=== PATIENT | male | born 1965 | race Caucasian/White ===

== ENCOUNTER 2020-10-10 22:37 | Emergency (ER) | payer OTHER ==
[2020-10-10] MEDS ORDERED: Adenosine 6 MG/2 ML SDV IVPUSH ONE (22:51)
[2020-10-10] MEDS: Adenosine 12 MG/4 ML SDV ONE (23:09)
[2020-10-10] MEDS: Adenosine 6 MG/2 ML SDV IVPUSH ONE (23:10)
[2020-10-10] MEDS: Aspirin 81 MG Tab.Chew PO ONE ×2 (23:10→23:22)
--- NOTE | 2020-10-10 23:16 | EDM.PDOC ---
ED HPI GENERAL MEDICAL PROBLEM - General Chief Complaint: Chest Pain Stated Complaint: FAST HEART RATE CHEST PAIN Time Seen by Provider: 10/10/20 22:50 Source of Information: Reports: Patient History Limitations: Reports: No Limitations - History of Present Illness INITIAL COMMENTS - FREE TEXT/NARRATIVE: ED ambulatory with c/o onset heart beating fast, sudden onset at 4pm while driving. Chest feels tight. Admits prior episodes but brief lasting only 10 minutes then resolving. No prior medical hx, on no medications. From [place] but here in area for pushd training. Generally active, minimal caffeine. Chest Pain Score (Numeric/FACES): 5 - Related Data Allergies Allergy/AdvReac Type Severity Reaction Status Date / Time No Known Allergies Allergy Verified 10/10/20 23:09 Home Meds: Home Meds . [No Known Home Meds] 10/10/20 [History] ED ROS GENERAL - Review of Systems Review Of Systems: Comprehensive ROS is negative, except as noted in HPI. Cardiovascular: Reports: Chest Pain, Palpitations. Denies: Lightheadedness ED EXAM, GENERAL - Physical Exam Exam: See Below Exam Limited By: No Limitations General Appearance: Alert, Mild Distress Eye Exam: Bilateral Eye: EOMI Ears: Normal External Exam Nose: Normal Inspection Throat/Mouth: Normal Inspection Head: Atraumatic, Normocephalic Neck: Normal Inspection Respiratory/Chest: No Respiratory Distress Cardiovascular: Regular Rate, Rhythm, Tachycardia (SVT 190) GI/Abdominal: Normal Bowel Sounds Back Exam: Normal Inspection, Full Range of Motion Extremities: Normal Inspection, Normal Range of Motion Neurological: Alert, Oriented, Normal Cognition Psychiatric: Normal Affect, Normal Mood Skin Exam: Warm, Dry, Intact, Normal Color #1 Interpretation EKG Date: 10/10/20 Time: 22:46 Rhythm: Other (SVT) Rate (Beats/Min): 183 QRS: Normal ST-T: Normal Comparison: NA - No Prior EKG #2 Interpretation EKG Date: 10/10/20 Time: 23:00 Rhythm: NSR Rate (Beats/Min): 84 [place]: Normal P-Wave: Present QRS: Normal ST-T: Normal Comparison: Change From Previous EKG (Conversion to NSR from SVT) Course - Vital Signs Last Recorded V/S: Last Vital Signs Temp 96.5 F L 10/10/20 22:46 Pulse 90 10/11/20 01:06 Resp 18 10/11/20 00:44 BP 129/87 10/11/20 01:06 Pulse Ox 96 10/11/20 00:44 - Orders/Labs/Meds Labs: Laboratory Tests 10/10/20 10/10/20 10/10/20 Range/Units 22:58 22:58 22:58 WBC 15.3 H (5.0-10.0) 10^3/uL RBC 5.06 (4.6-6.2) 10^6/uL Hgb 15.0 (14.0-18.0) g/dL Hct 44.5 (40.0-54.0) % MCV 87.9 (80-100) fL MCH 29.6 (27.0-34.0) pg MCHC 33.7 (33.0-35.0) g/dL Plt Count 327 (150-450) 10^3/uL Neut % (Auto) 81.1 H (42.2-75.2) % Lymph % (Auto) 10.3 L (20.5-50.1) % Mccracken % (Auto) 7.1 (2-8) % Eos % (Auto) 1.3 (1.0-3.0) % Baso % (Auto) 0.2 (0.0-1.0) % PT 10.2 (9.0-12.0) SEC INR 1.0 (0.9-1.2) D-Dimer, Quantitative < 100 (0-400) ng/mL Sodium 143 (136-145) mmol/L Potassium 4.4 (3.5-5.1) mmol/L Chloride 106 (98-107) mmol/L Carbon Dioxide 29 (21-32) mmol/L Anion Gap 12.4 (7-13) mEq/L BUN 19 H (7-18) mg/dL Creatinine 1.28 (0.70-1.30) mg/dL Est Cr Clr Drug Dosing 70.27 mL/min Estimated GFR (MDRD) 59 BUN/Creatinine Ratio 14.8 (No establ ref range) Glucose 143 H (70-99) mg/dL POC Glucose (70-99) mg/dL Calcium 8.9 (8.5-10.1) mg/dL Magnesium 2.1 (1.8-2.4) mg/dL Total Bilirubin 1.1 H (0.2-1.0) mg/dL AST 31 (15-37) U/L ALT 46 (16-63) U/L Alkaline Phosphatase 97 (46-116) U/L Troponin I 0.608 H* (0.000-0.056) ng/mL B-Natriuretic Peptide 26 (0-100) pg/ml Total Protein 6.7 (6.4-8.2) g/dL Albumin 3.8 (3.4-5.0) g/dL Globulin 2.9 Albumin/Globulin Ratio 1.3 Amylase 36 (25-115) U/L TSH, Ultra Sensitive (0.36-3.74) uIU/mL Urine Color (YELLOW) Urine Appearance (CLEAR) Urine pH (5.0-9.0) Ur Specific [place] (1.005-1.030) Urine Protein (NEGATIVE) Urine Glucose (UA) (NEGATIVE) Urine Ketones (NEGATIVE) Urine Occult Blood (NEGATIVE) Urine Nitrite (NEGATIVE) Urine Bilirubin (NEGATIVE) Urine Urobilinogen (0.2-1.0) mg/dL Ur Leukocyte Esterase (NEGATIVE) Urine Opiates Screen (NEGATIVE) Ur Oxycodone Screen (NEGATIVE) Urine Methadone Screen (NEGATIVE) Ur Barbiturates Screen (NEGATIVE) U Tricyclic Antidepress (NEGATIVE) Ur Phencyclidine Scrn (NEGATIVE) Ur Amphetamine Screen (NEGATIVE) U Methamphetamines Scrn (NEGATIVE) Urine MDMA Screen (NEGATIVE) U Benzodiazepines Scrn (NEGATIVE) Urine Cocaine Screen (NEGATIVE) U Marijuana (THC) Screen (NEGATIVE) SARS-CoV-2 RNA (MOHAMUD) (NEGATIVE) 10/10/20 10/10/20 10/10/20 Range/Units 22:58 23:17 23:35 WBC (5.0-10.0) 10^3/uL RBC (4.6-6.2) 10^6/uL Hgb (14.0-18.0) g/dL Hct (40.0-54.0) % MCV (80-100) fL MCH (27.0-34.0) pg MCHC (33.0-35.0) g/dL Plt Count (150-450) 10^3/uL Neut % (Auto) (42.2-75.2) % Lymph % (Auto) (20.5-50.1) % Mccracken % (Auto) (2-8) % Eos % (Auto) (1.0-3.0) % Baso % (Auto) (0.0-1.0) % PT (9.0-12.0) SEC INR (0.9-1.2) D-Dimer, Quantitative (0-400) ng/mL Sodium (136-145) mmol/L Potassium (3.5-5.1) mmol/L Chloride (98-107) mmol/L Carbon Dioxide (21-32) mmol/L Anion Gap (7-13) mEq/L BUN (7-18) mg/dL Creatinine (0.70-1.30) mg/dL Est Cr Clr Drug Dosing mL/min Estimated GFR (MDRD) BUN/Creatinine Ratio (No establ ref range) Glucose (70-99) mg/dL POC Glucose 117 H (70-99) mg/dL Calcium (8.5-10.1) mg/dL Magnesium (1.8-2.4) mg/dL Total Bilirubin (0.2-1.0) mg/dL AST (15-37) U/L ALT (16-63) U/L Alkaline Phosphatase (46-116) U/L Troponin I (0.000-0.056) ng/mL B-Natriuretic Peptide (0-100) pg/ml Total Protein (6.4-8.2) g/dL Albumin (3.4-5.0) g/dL Globulin Albumin/Globulin Ratio Amylase (25-115) U/L TSH, Ultra Sensitive 1.38 (0.36-3.74) uIU/mL Urine Color (YELLOW) Urine Appearance (CLEAR) Urine pH (5.0-9.0) Ur Specific [place] (1.005-1.030) Urine Protein (NEGATIVE) Urine Glucose (UA) (NEGATIVE) Urine Ketones (NEGATIVE) Urine Occult Blood (NEGATIVE) Urine Nitrite (NEGATIVE) Urine Bilirubin (NEGATIVE) Urine Urobilinogen (0.2-1.0) mg/dL Ur Leukocyte Esterase (NEGATIVE) Urine Opiates Screen (NEGATIVE) Ur Oxycodone Screen (NEGATIVE) Urine Methadone Screen (NEGATIVE) Ur Barbiturates Screen (NEGATIVE) U Tricyclic Antidepress (NEGATIVE) Ur Phencyclidine Scrn (NEGATIVE) Ur Amphetamine Screen (NEGATIVE) U Methamphetamines Scrn (NEGATIVE) Urine MDMA Screen (NEGATIVE) U Benzodiazepines Scrn (NEGATIVE) Urine Cocaine Screen (NEGATIVE) U Marijuana (THC) Screen (NEGATIVE) SARS-CoV-2 RNA (MOHAMUD) Negative (NEGATIVE) 10/11/20 10/11/20 Range/Units 01:10 01:10 WBC (5.0-10.0) 10^3/uL RBC (4.6-6.2) 10^6/uL Hgb (14.0-18.0) g/dL Hct (40.0-54.0) % MCV (80-100) fL MCH (27.0-34.0) pg MCHC (33.0-35.0) g/dL Plt Count (150-450) 10^3/uL Neut % (Auto) (42.2-75.2) % Lymph % (Auto) (20.5-50.1) % M[place]racken % (Auto) (2-8) % Eos % (Auto) (1.0-3.0) % Baso % (Auto) (0.0-1.0) % PT (9.0-12.0) SEC INR (0.9-1.2) D-Dimer, Quantitative (0-400) ng/mL Sodium (136-145) mmol/L Potassium (3.5-5.1) mmol/L Chloride (98-107) mmol/L Carbon Dioxide (21-32) mmol/L Anion Gap (7-13) mEq/L BUN (7-18) mg/dL Creatinine (0.70-1.30) mg/dL Est Cr Clr Drug Dosing mL/min Estimated GFR (MDRD) BUN/Creatinine Ratio (No establ ref range) Glucose (70-99) mg/dL POC Glucose (70-99) mg/dL Calcium (8.5-10.1) mg/dL Magnesium (1.8-2.4) mg/dL Total Bilirubin (0.2-1.0) mg/dL AST (15-37) U/L ALT (16-63) U/L Alkaline Phosphatase (46-116) U/L Troponin I (0.000-0.056) ng/mL B-Natriuretic Peptide (0-100) pg/ml Total Protein (6.4-8.2) g/dL Albumin (3.4-5.0) g/dL Globulin Albumin/Globulin Ratio Amylase (25-115) U/L TSH, Ultra Sensitive (0.36-3.74) uIU/mL Urine Color Dark yellow (YELLOW) Urine Appearance Slightly cloudy (CLEAR) Urine pH 6.0 (5.0-9.0) Ur Specific [place] >= 1.030 (1.005-1.030) Urine Protein Negative (NEGATIVE) Urine Glucose (UA) Negative (NEGATIVE) Urine Ketones Negative (NEGATIVE) Urine Occult Blood Negative (NEGATIVE) Urine Nitrite Negative (NEGATIVE) Urine Bilirubin Negative (NEGATIVE) Urine Urobilinogen 0.2 (0.2-1.0) mg/dL Ur Leukocyte Esterase Negative (NEGATIVE) Urine Opiates Screen Negative (NEGATIVE) Ur Oxycodone Screen Negative (NEGATIVE) Urine Methadone Screen Negative (NEGATIVE) Ur Barbiturates Screen Negative (NEGATIVE) U Tricyclic Antidepress Negative (NEGATIVE) Ur Phencyclidine Scrn Negative (NEGATIVE) Ur Amphetamine Screen Negative (NEGATIVE) U Methamphetamines Scrn Negative (NEGATIVE) Urine MDMA Screen Negative (NEGATIVE) U Benzodiazepines Scrn Negative (NEGATIVE) Urine Cocaine Screen Negative (NEGATIVE) U Marijuana (THC) Screen Negative (NEGATIVE) SARS-CoV-2 RNA (MOHAMUD) (NEGATIVE) Meds: Medications Discontinued Medications Generic Name Dose Route Start Last Admin Trade Name Jose PRN Reason Stop Dose Admin Adenosine 6 mg 10/10/20 22:51 10/10/20 23:09 Adenosine 6 Mg/2 Ml Sdv IVPUSH 10/10/20 22:52 6 mg NOW ONE Administration Adenosine 12 mg 10/10/20 22:51 10/10/20 23:10 Adenosine 6 Mg/2 Ml Sdv IVPUSH 10/10/20 22:52 Not Given NOW ONE Adenosine Confirm 10/10/20 22:52 10/10/20 23:09 Adenosine 12 Mg/4 Ml Sdv Administered 10/10/20 22:53 12 mg Dose Administration 12 mg .ROUTE .STK-MED ONE Aspirin 324 mg 10/10/20 22:51 10/10/20 23:22 Aspirin 81 Mg Tab.Chew PO 10/10/20 22:52 324 mg ONETIME ONE Administration Heparin Sodium (Porcine) 4,000 units 10/10/20 23:47 10/11/20 00:01 Heparin Sodium 5,000 Units/Ml Vial IVPUSH 10/10/20 23:48 4,000 units .BOLUS ONE Administration Heparin Sodium/Sodium Chloride 25,000 units in 500 mls @ 22.077 mls/hr 10/10/20 23:45 10/11/20 00:01 Heparin 25,000 Units In 1/2 Ns 500 Ml IV 12 units/kg/hr TITRATE ONEL 22.077 mls/hr Administration Protocol 12 UNITS/KG/HR Metoprolol Succinate 25 mg 10/11/20 00:50 10/11/20 01:06 Metoprolol Succinate 25 Mg Tab.Er PO 10/11/20 00:51 25 mg ONETIME ONE Administration - Re-Assessments/Exams Free Text/Narrative Re-Assessment/Exam: 10/10/20 23:35 No response with first dose adenosine 6mg. Conversion to NSR after Adenosine 12 mg . [facility], no bed availability, Dr Lima accepting [place] via [facility]. Departure - Departure Time of Disposition: 01:45 Disposition: DC/Tfer to Acute Hospital 02 Reason for Transfer *Q: Other Condition: Good Clinical Impression: SVT (supraventricular tachycardia), Elevated troponin Referrals: PCP,None [Primary Care Provider] - Forms: ED Department Discharge Sepsis Event Note (ED) - Focused Exam Vital Signs: Vital Signs Temp Pulse Pulse Resp BP BP Pulse Ox 10/11/20 01:06 90 129/87 10/11/20 00:44 87 18 126/79 96 10/10/20 22:46 96.5 F L 193 H 20 117/82 100
[2020-10-10 23:25] LABS: ANION GAP 12.4 mEq/L (7-13)
--- NOTE | 2020-10-10 23:27 | CR ---
PROCEDURE INFORMATION: Exam: XR Chest Exam date and time: 10/10/2020 11:02 PM Age: 55 years old Clinical indication: Other: Rapid heart rate; Chest wall pain; Additional info: Chest pain TECHNIQUE: Imaging protocol: XR of the chest. Views: 1 view. COMPARISON: No relevant prior studies available. FINDINGS: Lungs: The lungs are symmetric, well expanded and clear. Pleural spaces: There are no pleural effusions. There is no pneumothorax. Heart/Mediastinum: The heart size is normal as are the mediastinal and hilar contours. The pulmonary vessels are normal. Bones/joints: No acute osseous pathology is identified. IMPRESSION: No acute cardiopulmonary disease process identified.
[2020-10-10] MEDS ORDERED: Heparin Sodium/0.45% NaCl 25,000 UNITS/500 ML BAG IV SCH (23:45)
[2020-10-10] MEDS ORDERED: Heparin Sodium 5,000 Units/ML Vial IVPUSH ONE (23:47)
[2020-10-11] MEDS ORDERED: Metoprolol Succinate 25 MG Tab.ER PO ONE (00:50)
[2020-10-16] MEDS: Adenosine 6 MG/2 ML SDV IVPUSH ONE (08:13)
[2020-10-16] MEDS: Adenosine 12 MG/4 ML SDV ONE (08:14)
== END 2020-10-11 01:48 ==
LOC: DL.ED 22:37
DX: I47.1 Supraventricular tachycardia (principal); R79.89 Other specified abnormal findings of blood chemistry; Z20.822 Contact with and (suspected) exposure to COVID-19
CPT/HCPCS: 36415; 71045; 80053; 80305-QW; 81003; 82150; 82947; 83735; 83880; 84443; 84484; 85025; 85379; 85610; 93005; 93010; 96365; 96366; 96375; 99284; 99285-25; A9270-GY; J0153; J1644; U0002